=== PATIENT | female | born 2000 | race Caucasian/White ===

== ENCOUNTER → 2018-12-09 18:49 | Outpatient (CLI) | payer OTHER, SELFPAY ==
[2018-12-10 08:16] LABS: Urine N gonorrhoeae NOT DETECTED
[2018-12-11 10:32] LABS: Urine Chlamydia DETECTED
== END ==
PROVIDERS: Visit Provider Physician Assistant
DX: N39.0 Urinary tract infection, site not specified (principal); R31.9 Hematuria, unspecified; R30.0 Dysuria
CPT/HCPCS: 87086; 87491; 87591